=== PATIENT | female | born 1990 | race American Indian/Alaskan Native ===

== ENCOUNTER 2020-01-18 16:43 | Emergency (ER) | payer OTHER ==
[2020-01-18 16:48] VITALS: BP 91/53
[2020-01-18 17:04] LABS: Basophils # (Auto) 0.1 K/mm3 (0.0-0.1); Basophils % (Auto) 1.3 % (0.0-1.8); Eosinophils # (Auto) 0.2 K/mm3 (0.0-0.4); Eosinophils % (Auto) 2.3 % (0.0-4.3); Hematocrit 32.5 % (30.3-42.9); Hemoglobin 11.1 gm/dl (10.1-14.3); Lymphocytes # (Auto) 4.1 K/mm3 (1.2-5.4); Lymphocytes % (Auto) 47.2 % (13.4-35.0); Mean Corpuscular HGB Conc 34 % (30-34); Mean Corpuscular Volume 88 fl (79-97); Monocytes % (Auto) 11.2 % (0.0-7.3); Platelet Count 300 K/mm3 (140-440); Red Blood Count 3.68 M/mm3 (3.65-5.03); Red Cell Distribution Width 13.2 % (13.2-15.2)
[2020-01-18 17:26] LABS: Bacteria,Urine 1+ /HPF (Negative); Bilirubin,Urine NEG (Negative); Blood,Urine NEG (Negative); Color,Urine Yellow (Yellow); Mucus,Urine 3+ /HPF
--- NOTE | 2020-01-18 17:57 | Emergency Department Report ---
ED Female HPI - General Chief complaint: Vaginal Bleeding Stated complaint: CRAMPING/VAG BLEEDING BACK/HEAD PAIN Source: patient Mode of arrival: Ambulatory Limitations: No Limitations - History of Present Illness Initial comments: The patient was evaluated in the emergency department for symptoms described in the history of present illness. He/she was evaluated in the context of the global COVID-19 pandemic, which necessitated consideration that the patient might be at risk for infection with the virus that causes COVID-19. Institutional protocols and algorithms that pertain to the evaluation of patients at risk for COVID-19 are in a state of rapid change based on information released by regulatory bodies including the CDC and federal and state organizations. These policies and algorithms were followed during the patient's care in the emergency department. Please note that these policies, procedures and recommendations changed on a rapid basis. 29-year-old -[place] female presents to the emergency room for 2-day history of body aches and abdominal cramping and vaginal bleeding. Patient also reports of a headache some nausea mild dizziness no vomiting. Patient states that she had taken some Tylenol earlier today without much help. Patient reports her menstrual period started on 01/16/2020 and having heavy bleeding. Patient reports that she is 3 para 3. She has a past medical history of PCOS and does not take any medications on a daily basis. MD Complaint: vaginal bleeding Onset/Timin -: days(s) Location: suprapubic - Related Data Home Medications Medication Instructions Recorded Confirmed Last Taken Pgp080/Iron/FA/O3/Dha/Epa/Fish 1 each PO DAILY 09/26/13 03/08/14 03/07/14 10:00 [ Multi + Dha Softgel] Ferrous Sulfate 1 tab PO DAILY 03/08/14 03/08/14 03/07/14 10:00 Previous Rx's Medication Instructions Recorded Last Taken Type Acetaminophen [Acetaminophen 8 650 mg PO Q8H PRN #20 tablet.er 11/05/19 Unknown Rx Hour] methOCARBAMOL [Robaxin TAB] 500 mg PO BID PRN #12 tab 11/05/19 Unknown Rx Nitrofurantoin [place]/M-Cryst 100 mg PO Q12HR 7 Days #14 capsule 01/18/20 Unknown Rx [Macrobid CAP] Allergies Allergy/AdvReac Type Severity Reaction Status Date / Time aspirin Allergy Angioedema Verified 06/15/13 16:29 ED Review of Systems ROS: Stated complaint: CRAMPING/VAG BLEEDING BACK/HEAD PAIN Other details as noted in HPI Comment: All other systems reviewed and negative ED Past Medical Hx - Past Medical History Previous Medical History?: Yes Hx Hypertension: No Hx Congestive Heart Failure: No Hx Diabetes: No Hx Deep Vein Thrombosis: No Hx Renal Disease: No Hx Sickle Cell Disease: No Hx Seizures: No Hx Asthma: Yes Hx COPD: No Hx HIV: No Additional medical history: previous Gestational Diabetes - Social History Smoking Status: Current Every Day Smoker Substance Use Type: None - Medications Home Medications: Home Medications Medication Instructions Recorded Confirmed Last Taken Type Keb959/Iron/FA/O3/Dha/Epa/Fish 1 each PO DAILY 09/26/13 03/08/14 03/07/14 10:00 History [ Multi + Dha Softgel] Ferrous Sulfate 1 tab PO DAILY 03/08/14 03/08/14 03/07/14 10:00 History Acetaminophen [Acetaminophen 8 650 mg PO Q8H PRN #20 tablet.er 11/05/19 Unknown Rx Hour] methOCARBAMOL [Robaxin TAB] 500 mg PO BID PRN #12 tab 11/05/19 Unknown Rx Nitrofurantoin [place]/M-Cryst 100 mg PO Q12HR 7 Days #14 capsule 01/18/20 Unknown Rx [Macrobid CAP] ED Physical Exam - General Limitations: No Limitations ED Course Vital Signs 01/18/20 16:46 Temperature 98.6 F Pulse Rate 103 H Respiratory 18 Rate Blood Pressure 91/53 O2 Sat by Pulse 100 Oximetry ED Medical Decision Making - Lab Data Result diagrams: 01/18/20 16:56 - Medical Decision Making 29-year-old -[place] female presents to the emergency room for 2-day history of body aches and abdominal cramping and vaginal bleeding. Patient also reports of a headache some nausea mild dizziness no vomiting. Patient states that she had taken some Tylenol earlier today without much help. Patient reports her menstrual period started on 01/16/2020 and having heavy bleeding. Patient reports that she is 3 para 3. She has a past medical history of PCOS and does not take any medications on a daily basis. Urinalysis shows that patient has a mild elevation of WBCs. Patient is having some dizziness and heavy bleeding will check a CBC. Critical care attestation.: If time is entered above; I have spent that time in minutes in the direct care of this critically ill patient, excluding procedure time. ED Disposition Clinical Impression: UTI (urinary tract infection) Qualifiers: Urinary tract infection type: site unspecified Hematuria presence: with hematuria Qualified Code(s): N39.0 - Urinary tract infection, site not specified; R31.9 - Hematuria, unspecified Disposition: TO HOME OR SELFCARE Is pt being admited?: No Does the pt Need Aspirin: No Condition: Stable Instructions: Urinary Tract Infection in Women (ED) Additional Instructions: Complete antibiotics as prescribed. Increase your water intake. Follow-up with your primary care provider or OB provider. Prescriptions: Nitrofurantoin [place]/M-Cryst [Macrobid CAP] 100 mg PO Q12HR 7 Days #14 capsule Referrals: [facility] [Provider Group] - 3-5 Days [facility] [Provider Group] - 3-5 Days Forms: Work/School Release Form(ED)
[2020-01-18 18:55] LABS: Hematocrit 31.8 % (30.3-42.9); Hemoglobin 10.9 gm/dl (10.1-14.3); Mean Corpuscular HGB Conc 34 % (30-34); Mean Corpuscular Volume 88 fl (79-97); Platelet Count 294 K/mm3 (140-440); Red Blood Count 3.61 M/mm3 (3.65-5.03); Red Cell Distribution Width 13.3 % (13.2-15.2)
== END 2020-01-18 18:36 | disposition home or self-care (01) ==
LOC: ED 16:43
DX: N39.0 Urinary tract infection, site not specified (principal); J45.909 Unspecified asthma, uncomplicated; F17.200 Nicotine dependence, unspecified, uncomplicated
CPT/HCPCS: 36415; 81001; 84703; 85025; 85027; 87086